=== PATIENT | male | born 1985 | race African-American/Black ===

== ENCOUNTER 2016-12-19 10:02 | Emergency (ER) | payer OTHER ==
[~2016-12-19] VITALS: Ht 193 cm; Wt 68.1 kg
[~2016-12-19 10:02] MED LIST: PEPCID20 MG PO
[2016-12-19 10:52] LABS: EOSINOPHIL (%) 0 % (0-5); IMMATURE GRANULOCYTE (%) 0.2 % (0.0-0.7); INSTRUMENT ABS NEUTROPHIL CT 3.3 K/uL; LYMPHOCYTE COUNT 0.6 K/uL (1.0-2.8); MCH 26.8 PG (29.0-34.0); MCHC 32.9 G/DL (30.0-36.0); MCV 81.4 FL (86-99); MEAN PLAT.VOLUME 10.7 uM^3 (9.0-12.4); MONOCYTE (%) 14.8 % (3-12); MONOCYTE COUNT 0.7 K/uL (0-0.8); NEUTROPHIL (%) 72.4 % (45-76); NEUTROPHIL COUNT 3.3 K/uL (1.8-6.4); PLATELET COUNT 197 K/uL (156-360); RBC DIS.WIDTH-CV 12.9 % (11.8-14.6); RBC DIS.WIDTH-SD 38.5 % (39-53); RED BLOOD COUNT 5.53 M/uL (4.00-5.50); WHITE BLOOD COUNT 4.6 K/uL (4.1-10.2)
[2016-12-19 11:01] LABS: CHLORIDE 97 mEq/L (99-109); SODIUM 131 mEq/L (136-147)
[2016-12-19 11:03] LABS: GLUCOSE 94 mg/dL (70-99)
[2016-12-19 11:05] LABS: ANION GAP 10 MEQ/L (2-14); TOTAL BILIRUBIN 0.6 mg/dL (0.0-1.0)
[2016-12-19 11:07] LABS: ALKALINE PHOSPHATASE 46 IU/L (3-129); GFR ESTIMATE (CALCULATED) > 59 mL/min/
[2016-12-19 11:08] LABS: UREA NITROGEN (BUN) 15 mg/dL (9-23)
[2016-12-19 11:25] LABS: INFLUENZA A VIRAL ANTIGEN NEGATIVE; INFLUENZA B VIRAL ANTIGEN POSITIVE
[2016-12-19] MEDS ORDERED: PROAIR HFA8.5 GM IH (12:29)
[2016-12-19] MEDS ORDERED: PREDNISONE20 MG PO (12:29)
[2016-12-19] MEDS ORDERED: ZITHROMAX Z-PA250 MG PO (12:29)
[2016-12-19 12:39] VITALS: BP 127/82
== END 2016-12-19 12:41 | disposition home or self-care (01) ==
LOC: EME 10:02
PROVIDERS: Emergency Medicine
DX: J10.1 Influenza due to other identified influenza virus with other respiratory manifestations (principal); J02.9 Acute pharyngitis, unspecified; J45.901 Unspecified asthma with (acute) exacerbation; F17.200 Nicotine dependence, unspecified, uncomplicated
CPT/HCPCS: 71020; 80053; 85025; 87502; 94640; 99281; 99284; J1885; J2930; J7030